=== PATIENT | male | born 1985 | race African-American/Black ===

== ENCOUNTER 2019-02-13 10:49 | Emergency (ER) | payer OTHER ==
[~2019-02-13] VITALS: Ht 175.3 cm; Wt 93.2 kg
[2019-02-13] MEDS ORDERED: IBUP80TA PO (12:36)
[2019-02-13] MEDS ORDERED: CYCL10TA PO (12:36)
[2019-02-13] MEDS ORDERED: IBUPROFEN 800 MG TAB PO ONE (12:45)
[2019-02-13 12:49] VITALS: BP 119/79
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
== END 2019-02-13 12:51 | disposition home or self-care (01) ==
LOC: M ED 10:49
DX: S16.1XXA Strain of muscle, fascia and tendon at neck level, initial encounter (principal); V43.52XA Car driver injured in collision with other type car in traffic accident, initial encounter; Y92.9 Unspecified place or not applicable; Y93.9 Activity, unspecified; Y99.9 Unspecified external cause status